=== PATIENT | female | born 1980 | race Two or more races ===

== ENCOUNTER 2021-11-27 08:51 | Day surgery (SDC) | payer OTHER ==
[2021-11-27] MEDS ORDERED: NEXIUM 24HR20 MG PO (10:08)
== END 2021-11-27 11:50 | disposition home or self-care (01) ==
LOC: AMB-ENDOS 08:51 → ADM 15:30
PROVIDERS: ATTEND Surgery
DX: K29.00 Acute gastritis without bleeding (principal); K44.9 Diaphragmatic hernia without obstruction or gangrene; I10 Essential (primary) hypertension; K76.0 Fatty (change of) liver, not elsewhere classified